=== PATIENT | female | born 1960 | race Caucasian/White ===

== ENCOUNTER 2020-12-15 08:13 | Emergency (ER) | payer MEDICARE, MEDICAID ==
[~2020-12-15] VITALS: Ht 172.7 cm; Wt 68.2 kg
[2020-12-15 08:19] VITALS: BP 111/64
[2020-12-15] MEDS ORDERED: buprenorphine/naloxone 8MG-2MG SUBlingual film SL SCH (10:55)
== END 2020-12-15 11:18 | disposition home or self-care (01) ==
LOC: ER 08:15
DX: F11.90 Opioid use, unspecified, uncomplicated (principal); J34.89 Other specified disorders of nose and nasal sinuses; M79.10 Myalgia, unspecified site; Z71.6 Tobacco abuse counseling; Z85.9 Personal history of malignant neoplasm, unspecified; Z91.041 Radiographic dye allergy status; Z87.442 Personal history of urinary calculi
CPT/HCPCS: 99283

== ENCOUNTER 2025-02-10 09:24 | Emergency (ER) | payer MEDICARE, MEDICAID ==
[~2025-02-10] VITALS: Ht 172.7 cm; Wt 70.3 kg
--- NOTE | 2025-02-10 10:14 | RADIOLOGY REPORT ---
DI CHEST,SINGLE VIEW, HISTORY: coughing up blood COMPARISON: None None TECHNICAL DATA: 1 view of the chest was obtained. FINDINGS: Lines and tubes: None Cardiomediastinal silhouette: normal Pulmonary vasculature: normal Lung expansion: normal Lung airspace: normal Lung interstitium: prominent Pleura: normal Pneumothorax: no Bones: Unremarkable Other: no IMPRESSION: Prominent left perihilar infiltrative interstitial opacities could be seen with pneumonia.
--- NOTE | 2025-02-10 10:18 | Physician Documentation ---
History of Present Illness General Chief Complaint: Bloody Sputum Stated Complaint: COUGHING UP BLOOD Time Seen by MD: 10:02 Primary Medical Doctor: ALFREDO CARMONA Mode of Arrival: POV History of Present Illness Initial Comments The patient is a 65-year-old female with a history of COPD (recently started on Breztri) and opioid use disorder (takes Suboxone) who presents with hemoptysis yesterday. 6 hours later she had a nosebleed, as well. She is not certain w hether she might have had some nasal bleeding that resulted in the hemoptysis but reports that the nosebleed did not occur until 6 hours after an episode of hemoptysis. She has a remote history of lung cancer which was treated with surgery but no chemoradiotherapy. Medication Reconciliation Allergies: Uncoded Allergies: IV DYE, IODINE CONTAINING CONTRAST (Allergy, Unknown, 07/04/18) Past Medical History Past Medical History: Hernia, Kidney Stones, Squamous Cell, Lung Cancer, Anxiety, Depression Past Surgical History: other Smoking: Cigarettes, Less than 1 pack/day Alcohol Use: None Drug Use: none Lives In: Home Review of Systems ROS Constitutional: Denies chills, fatigue, fever, weight gain or weight loss. HEENT: Denies hearing loss, sinus pressure or visual changes. Two episodes of nosebleed yesterday. Respiratory: Denies cough, shortness of breath or wheezing. Episode of hemoptysis yesterday. Cardiovascular: Denies chest pain, pain while walking (claudication), edema or palpitations. Gastrointestinal: Denies abdominal pain, blood in stool, constipation, diarrhea, heartburn, loss of appetite, nausea or vomiting. Genitourinary: Denies painful urination (dysuria), excessive amount of urine (polyuria) or urinary frequency. Metabolic/Endocrine: Denies cold intolerance, heat intolerance, excessive thirst (polydipsia) or excessive hunger (polyphagia). Neurological: Denies dizziness, extremity numbness, extremity weakness, headaches, seizures or tremors. Psychiatric: Denies anxiety or depression. Integumentary: Denies breast discharge, breast lump, hives, mole change(s), rash or skin lesion. Musculoskeletal: Denies back pain, joint pain, joint swelling or neck pain. Hematologic: Denies easily bleeding, easily bruises, lymphedema or issues with blood clots. Immunologic: Denies food allergies or seasonal allergies. Physical Exam Physical Exam Vital Signs: Temperature: 98.1, Source: Oral, Heart Rate: 72, Respiratory Rate: 18, BP: 127/68, Pulse Oximetry: 94, Weight: 70.300 Oxygen Flow Rate: 0 Physical Exam Physical Exam Vitals and nursing note reviewed. Constitutional: General: Patient is awake, alert, oriented x 4 in no acute distress and well appearing. Speech is clear and lucid. Appearance: Normal appearance. Patient is not ill-appearing, toxic-appearing or diaphoretic. HENT: Head: Normocephalic and atraumatic. Mouth/Throat: Mouth: Mucous membranes are moist. Pharynx: Oropharynx is clear. Eyes: General: No scleral icterus. Extraocular Movements: Extraocular movements intact. Pupils: Pupils are equal, round, and reactive to light. Neck: Supple, no Kernig or Brudzinski sign. Cardiovascular: Rate and Rhythm: Normal rate and regular rhythm. Heart sounds: No murmur heard. Pulmonary: Effort: No respiratory distress. Breath sounds: No wheezing, rhonchi or rales. Abdominal: General: There is no distension. Palpations: There is no fluid wave, hepatomegaly or mass. Tenderness: There is no abdominal tenderness. There is no guarding. Musculoskeletal: General: No swelling or deformity. Skin: Coloration: Skin is not jaundiced. Findings: No erythema or rash. Neurological: Mental Status: Patient is alert. Progress Results/Orders Results/Orders Orders - ERICK CORTES MD Chest,Single View (02/10/25 09:29) Cta Chest Pe (02/10/25 12:29) Completed Orders - ERICK CORTES MD Chest,Single View (02/10/25 09:29) Cbc/Diff (02/10/25 10:11) CMP (02/10/25 10:11) PTT (02/10/25 10:11) Pt Inr (02/10/25 10:11) MG (02/10/25 10:11) Iohexol 350mg/Ml 100ml (Omnipaque 350mg/ (02/10/25 12:04) Diphenhydramine Inj (Benadryl Inj.) (02/10/25 12:15) Cta Chest Pe (02/10/25 12:29) Medications Received in ER Medications (Trade) Dose Ordered Sig/Gaston Route PRN Reason Start Time Stop Time Status Last Admin Dose Admin (Benadryl inj.) 50 mg ONCE ONCE IV 02/10/25 12:15 02/10/25 12:16 DC 02/10/25 12:53 50 MG Vital Signs 02/10/25 02/10/25 02/10/25 02/10/25 09:25 09:40 09:42 10:35 Temp 98.1 98.1 98.1 Pulse 73 72 65 Resp 16 18 18 16 B/P (MAP) 135/76 127/68 (87) 114/64 (81) Pulse Ox 94 94 93 O2 Flow Rate 0 0 0 02/10/25 02/10/25 13:14 15:11 Temp 98.1 Pulse 59 59 Resp 15 18 B/P (MAP) 132/77 (95) 106/62 (77) Pulse Ox 97 93 O2 Flow Rate 0 Laboratory Tests Test 02/10/25 10:27 White Blood Count 6.6 Red Blood Count 4.96 Hemoglobin 14.9 Hematocrit 44.4 Mean Corpuscular Volume 89.5 Mean Corpuscular Hemoglobin 30.0 Mean Corpuscular Hemoglobin Concent 33.5 Red Cell Distribution Width 14.0 Platelet Count 231 Mean Platelet Volume 9.0 Neutrophils (%) (Auto) 60.2 Lymphocytes (%) (Auto) 28.7 Monocytes (%) (Auto) 7.2 Eosinophils (%) (Auto) 3.1 Basophils (%) (Auto) 0.8 Neutrophils # (Auto) 4.0 Lymphocytes # (Auto) 1.9 Monocytes # (Auto) 0.5 Eosinophils # (Auto) 0.2 Basophils # (Auto) 0.1 CBC Comment Prothrombin Time 10.3 INR International Normalized Ratio 1.0 Activated Partial Thromboplast Time 29 Coagulation Comments Sodium Level 136 Potassium Level 4.3 Chloride Level 102 Carbon Dioxide Level 29.1 Anion Gap 5 L Blood Urea Nitrogen 8 Creatinine 0.63 Estimated GFR/1.73 m2 > 90 BUN/Creatinine Ratio 12.7 Glucose Level 81 Calcium Level 9.1 Magnesium Level 2.2 Total Bilirubin 0.5 Aspartate Amino Transf (AST/SGOT) 17 Alanine Aminotransferase (ALT/SGPT) 24 Alkaline Phosphatase 63 Total Protein 6.9 Albumin 3.7 Globulin 3.2 Albumin/Globulin Ratio 1.2 Chemistry Comments Medical Decision Making Findings CTA chest does not show a PE or pneumonia but does show severe COPD. I am going to prescribe a Z-Vinod and have this patient follow-up with her PCP. It is not clear why she had epistaxis but it has not recurred here. I did offer her admission and she adamantly refused. Departure Disposition: HOME / SELF CARE / HOMELESS Impression: Primary Impression: Hemoptysis Condition: Stable Additional Instructions: It is important to see your doctor or primary care provider. Emergency care may be incomplete without proper follow-up. Symptoms sometimes change or new symptoms might arise after you leave the emergency department. It is important that you call your doctor if you become worse in any way, or return to the [facility] department. You are strongly urged to follow-up with your physician to assure complete and thorough care. Please call your doctor's office today, and informed them that you were seen in the emergency department, and that you need to be seen immediately for close follow-up. If you do not have a primary care doctor we encourage you to proactively seek a local physician for close follow-up. Consider local clinics, community health systems, or local [facility]. Prior to discharge we spoke at length concerning symptoms that would merit reevaluation, but please return to the emergency department for any symptoms that are concerning to you, and we will be happy to continue your evaluation and treatment. Please note you can always return to the emergency department if you are having difficulty coordinating close follow-up. If medications were prescribed, you should fill them at your local pharmacy immediately and take only as prescribed. Bring your new medications to your doctors follow-up visit to discuss any changes that would be necessary. Please check [facility] for any results you did not receive in the Emergency Department: often we are unable to get all your tests back before you leave, and these tests need to be reviewed by your PCP and yourself. You can also call Medical Records if you are unable to access the internet to see [facility]. Return to the emergency department immediately for worsening chest pain, difficulty breathing, sweating, or other concerning emergent symptoms. Referrals: NO PRIMARY CARE PROVIDER (PCP) Prescriptions Azithromycin (Zithromax) 250 Mg Tablet 1 TAB PO UD for 5 Days, #6 TAB 2 the first day followed by 1 for days 2-5 Prov: ERICK CORTES MD 02/10/25 Education Educated: Patient Educated regarding: diagnosis, treatment, prognosis, need for follow up Signature Scribe Signature: . Attestation: . ERICK CORTES MD Feb 10, 2025 10:18
[2025-02-10 11:03] LABS: MEAN PLATELET VOLUME 9.0 FL (7.4-10.4)
[2025-02-10 11:04] LABS: RED CELL DISTRIBUTION WIDTH 14.0 % (11.5-14.5)
[2025-02-10 11:13] LABS: APTT 29 SECONDS (22-32); INR 1.0 INR
[2025-02-10 11:28] LABS: CREATININE 0.63 MG/DL (0.40-0.90); TOTAL CARBON DIOXIDE 29.1 MMOL/L (24-32); eCRCL 87 ML/MIN; eGFR > 90 ML/MIN
--- NOTE | 2025-02-10 14:11 | RADIOLOGY REPORT ---
CT CTA CHEST PE INDICATION: Hemoptysis EXAM DATE: 02/10/2025 01:19 PM COMPARISON: DI CHEST,SINGLE VIEW on DOS: 02/10/25 RADIATION DOSE: CTDIvol: 9 mGy, DLP: 377 mGy*cm PROCEDURE: Helical CT angiographic images were obtained of the chest with intravenous contrast. Sagi ttal and coronal reconstructions as well as MIPS are provided. Maximum intensity projections performe d (MIPs) were performed for CTA. ADDITIONAL IMAGES / REFORMATS: None All CT scans at this medical facility are performed using dose modulation techniques as appropriate t o a performed exam including the following: Automated exposure control was utilized; adjustment of th e MA and/or KV according to patient size; and use of iterative reconstruction technique. FINDINGS: Bones: Scattered degenerative changes are noted in the visualized osseous structures. Visualized Abdomen: Normal. Chest Wall: Normal. Soft tissues: Normal. Mediastinum: Normal. Heart: Normal. Vessels: No filling defects in the visualized pulmonary arteries including the segmental and subsegme ntal pulmonary arteries. Lymph Nodes: Normal. Pleura: Normal. Airways: Normal. Lung: Severe lung emphysema. RML scarring. Other: None IMPRESSION: No pulmonary embolism in the visualized pulmonary arteries including the segmental and subsegmental p ulmonary arteries. Severe lung emphysema. RML scarring.
[2025-02-10 15:11] VITALS: BP 106/62; PULSE 59; RESP 18; O2SAT 93
[2025-02-10] MEDS ORDERED: AZIT250T3 PO (15:46)
[2025-02-10 15:50] VITALS: TEMP 98.1
== END 2025-02-10 15:55 | disposition home or self-care (01) ==
LOC: ER 09:24
DX: R04.2 Hemoptysis (principal); J44.9 Chronic obstructive pulmonary disease, unspecified; F41.9 Anxiety disorder, unspecified; F32.A Depression, unspecified; F17.210 Nicotine dependence, cigarettes, uncomplicated; Z85.118 Personal history of other malignant neoplasm of bronchus and lung; Z87.442 Personal history of urinary calculi
CPT/HCPCS: 36415; 71045; 71275; 80053; 83735; 85025; 85610; 85730; 96374; 99285; J1200; L3908; Q9967